=== PATIENT | female | born 1995 | race Caucasian/White ===

== ENCOUNTER 2017-06-29 23:30 | Observation (INO) | payer OTHER ==
[2017-06-29] MEDS ORDERED: fentaNYL 100 MCG/2 ML INJ IVP ONE (23:40)
[2017-06-29] MEDS ORDERED: NS 1,000 ML IV ONE (23:40)
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
[2017-06-30 00:13] LABS: PLATELET COUNT 578 10^3/uL (150-400)
[2017-06-30] MEDS ORDERED: ACETAMINOPHEN 325 MG TAB PO PRN (00:53)
[2017-06-30] MEDS ORDERED: ONDANSETRON DISINTEGRATING 4 MG TAB PO PRN (00:53)
[2017-06-30] MEDS ORDERED: NS 1,000 ML IV ONE (01:19)
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
[2017-06-30] MEDS ORDERED: AZITHROMYCIN 250 MG TAB PO ONE (03:43)
[2017-06-30] MEDS: oxyCODONE IR 5 MG TAB PO PRN ×2 (05:46→15:08)
[2017-06-30] MEDS: ONDANSETRON 4 MG/2 ML VIAL IVP PRN ×3 (06:39→17:08)
[2017-06-30 09:04] LABS: PLATELET COUNT 455 10^3/uL (150-400)
[2017-06-30] MEDS ORDERED: BUPIVACAINE/EPI 0.5% 30 ML SDV ONE (09:34)
[2017-06-30] MEDS ORDERED: BACITRACIN 50,000 UNITS/10 ML SYR IRR ONE (09:35)
[2017-06-30] MEDS ORDERED: POLYMYXIN B SULFATE 500,000 UNIT/10 ML SYR IRR ONE (09:35)
[2017-06-30] MEDS ORDERED: MIDAZOLAM 2 MG/2 ML VIAL IVP ONE (09:37)
--- NOTE | 2017-06-30 09:37 | PDANEPAE ---
ANE History of Present Illness left tib/fib frx ANE Past Medical History - Cardiovascular History Hx Hypertension: No Hx Arrhythmias: No Hx Chest Pain: No Hx Coronary Artery / Peripheral Vascular Disease: No Hx CHF / Valvular Disease: No Hx Palpitations: No - Pulmonary History Hx COPD: No Hx Asthma/Reactive Airway Disease: No Hx Recent Upper Respiratory Infection: No Hx Oxygen in Use at Home: No Hx Sleep Apnea: No Sleep Apnea Screening Result - Last Documented: Negative - Endocrine History Hx Diabetes: No Hyperthyroid: No - Renal History Hx Renal Disorders: No - Liver History Hx Hepatic Disorders: No - Neurological & Psychiatric Hx Hx Neurological and Psychiatric Disorders: No - Cancer History Hx Cancer: No - GI History GERD: no - Chronic Pain History Chronic Pain: No ANE Review of Systems Review of systems is: negative Review of Systems: - Exercise capacity Exercise capacity: >=4 METS ANE Patient History - Allergies Allergies/Adverse Reactions: No Known Allergies Allergy (Unverified 06/29/17 23:35) - Home Medications Home Medications: Control 06/29/17 [Last Taken Unknown] Synthroid 06/29/17 [Last Taken Unknown] - NPO status NPO Status: no food or drink >8 hours NPO Since - Liquids (Date): 06/29/17 NPO Since - Liquids (Time): 22:00 NPO Since - Solids (Date): 06/29/17 NPO Since - Solids (Time): 17:00 - Anes Hx Anes Hx: no prior problems - Smoking Hx Smoking Status: Never smoked - Alcohol Use Alcohol Use: Heavy - Family Anes Hx Family Anes Hx: none ANE Labs/Vital Signs - Labs Result Diagrams: 06/30/17 08:42 06/30/17 08:42 - Vital Signs Vital Signs: reviewed preoperatively; see RN documention for details Blood Pressure: 111/58 Heart Rate: 109 Respiratory Rate: 18 O2 Sat (%): 94 Height: 157.48 cm Weight: 61.235 kg ANE Physical Exam - Airway Neck exam: FROM Mallampati Score: Class 1 - Pulmonary Pulmonary: no respiratory distress - Cardiovascular Cardiovascular: regular rate and rhythym - ASA Status ASA Status: II ANE Anesthesia Plan Anesthesia Plan: GA w LMA
[2017-06-30] MEDS ORDERED: MIDAZOLAM 2 MG/2 ML VIAL ONE (09:41)
[2017-06-30] MEDS ORDERED: ceFAZolin 2 GM/SWFI 20 ML SYR IVP ONE (09:45)
[2017-06-30] MEDS ORDERED: LIDOCAINE 2% 5 ML SDV ONE (09:52)
[2017-06-30] MEDS ORDERED: ROCURONIUM 50 MG/5 ML VIAL ONE ×2 (09:52→10:51)
[2017-06-30] MEDS ORDERED: fentaNYL 100 MCG/2 ML INJ ONE ×2 (09:52→12:41)
[2017-06-30] MEDS ORDERED: PROPOFOL 200 MG/20 ML VIAL ONE (09:52)
[2017-06-30] MEDS ORDERED: DEXAMETHASONE 4 MG/ML VIAL ONE ×2 (10:05)
[2017-06-30] MEDS ORDERED: ONDANSETRON 4 MG/2 ML VIAL ONE ×2 (10:05→12:33)
[2017-06-30] MEDS ORDERED: HYDROmorphONE/DILAUDID 2 MG/ML INJ ONE ×2 (10:50→13:05)
[2017-06-30] MEDS ORDERED: SUGAMMADEX SODIUM 200 MG/2 ML VIAL IVP ONE (11:50)
[2017-06-30] MEDS ORDERED: KETOROLAC 30 MG/1 ML SDV ONE (11:50)
[2017-06-30] MEDS ORDERED: oxyCODONE IR 5 MG TAB PO PRN (12:21)
[2017-06-30] MEDS ORDERED: PROMETHAZINE HCL 25 MG/ML INJ IVP PRN (12:21)
[2017-06-30] MEDS ORDERED: ONDANSETRON 4 MG/2 ML VIAL IVP PRN (12:21)
[2017-06-30] MEDS ORDERED: ALBUTEROL 3 ML DEYVIAL IH PRN (12:21)
[2017-06-30] MEDS ORDERED: DIAZEPAM 5 MG/ML 1 ML SYR IVP PRN (12:21)
[2017-06-30] MEDS ORDERED: NALOXONE HCL 0.4 MG/ML INJ IVP PRN (12:21)
[2017-06-30] MEDS ORDERED: HYDROmorphONE/DILAUDID 1 MG/ML INJ IVP PRN (12:21)
--- NOTE | 2017-06-30 12:21 | POSTANESTH ---
Post Anesthetic Evaluation Cardiovascular Status: Normal, Stable Respiratory Status: Normal, Stable Level of Consciousness/Mental Status: Can Participate in Eval Pain Control: Adequate, Prn Tx Ordered Nausea/Vomiting Control: Adequate, Prn Tx Ordered Complications Possibly Related to Anesthesia: None Noted
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
[2017-06-30] MEDS: fentaNYL 100 MCG/2 ML INJ IVP PRN ×2 (12:44→12:57)
[2017-06-30] MEDS ORDERED: PROMETHAZINE HCL 25 MG/ML INJ ONE (12:51)
[2017-06-30] MEDS ORDERED: HYDROmorphone HCL/NS 0.5 MG/ML SYR IVP PRN (13:11)
--- NOTE | 2017-06-30 13:11 | POSTOPPROG ---
Post Op Note Date of Operation: 06/30/17 Surgeon: Jeramie Tompkins Cableman: Mandy Montoya Anesthesiologist: MD Marco Anesthesia: GET(General Endotracheal) Pre-op Diagnosis: Left closed tib/fib fracture Post-op Diagnosis: same Procedure: Left tibia closed reduction IMN Inf/Abcess present in the surg proc area at time of surgery?: No EBL: 50-100
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
--- NOTE | 2017-06-30 15:30 | GDS ---
[f rep st] DISCHARGE SUMMARY DISCHARGE DIAGNOSES: Include acute tibia-fibula fracture, status post intraoperative fixation. HISTORY OF PRESENT ILLNESS: A 21-year-old female who presents acutely intoxicated from alcohol with leg pain. For details of the patient's initial presentation, please see the history and physical dejuan ed 06/29/2017. CONSULTATIVE SERVICES: Include Orthopedic Surgery. PROCEDURES: On 06/30/2017, patient underwent intraoperative fixation of a displaced midshaft tibia-f ibula fracture. HOSPITAL COURSE BY ISSUE: 1. Acute tibia-fibula fracture. Fracture was displaced. Patient was taken to the operating room mo rning after presentation for repair. Surgical procedure was uncomplicated. The patient is a nick te for disposition after she recovers in the PACU. She will be provided with 3 weeks of Lovenox prop hylaxis. She is to be seen by Dr. Tompkins in the clinic prior to that to make decisions on ultimate holly gth of Lovenox prophylaxis. We are providing [place] for p.r.n. pain management, as well as bowel jaime men. Dr. Tompkins has asked that the patient discontinue any estrogen containing control pills whi le she is recovering from this injury. 2. High risk alcohol behavior. Patient presented with a BAL of 260, and was conversant at the time. I did have a discussion at length with her father, who is an anesthesiologist in [place]. They will provide resources and education related to alcohol intoxication moving forward. MEDICATIONS AT THE TIME OF DISPOSITION: Please reference med rec printed on 06/30/2017. FOLLOWUP APPOINTMENTS: Include with Dr. Tompkins in 2 weeks for her first postoperative followup. PENDING STUDIES AT THE TIME OF THIS DICTATION: None. TIME SPENT: I spent greater than 30 minutes in the planning and coordination of this discharge. /[id number]/MODL
[2017-06-30] MEDS ORDERED: ceFAZolin 2 GM/SWFI 2 GM/20 ML SYR IVP SCH (17:00)
[2017-06-30 17:22] VITALS: BP 111/70
[2017-07-01] MEDS ORDERED: ENOXAPARIN 40 MG/0.4 ML SYR SC SCH (09:00)
== END 2017-06-30 18:41 | disposition home or self-care (01) ==
LOC: F3N 06-30 05:18
PROVIDERS: ADMIT Student in an Organized Health Care Education/Training Program; ATTEND Hospitalist
DX: S82.292A Other fracture of shaft of left tibia, initial encounter for closed fracture (principal); S82.492A Other fracture of shaft of left fibula, initial encounter for closed fracture; J95.821 Acute postprocedural respiratory failure; Y93.89 Activity, other specified; W52.XXXA Crushed, pushed or stepped on by crowd or human stampede, initial encounter; F10.929 Alcohol use, unspecified with intoxication, unspecified; Y90.8 Blood alcohol level of 240 mg/100 ml or more; E03.9 Hypothyroidism, unspecified
CPT/HCPCS: 27759; 29505; 73590; 76001; 97161; G0378; 80305; 96374; C1713; G0480; J0690; J0696; J1100; J1170; J1885; J2250; J2270; J2405; J2550; J2704; J3010